=== PATIENT | female | born 2005 | race Caucasian/White ===

== ENCOUNTER 2025-01-23 07:03 | Outpatient (REF) | payer BC, SELFPAY ==
--- NOTE | ~2025-01-23 | US_ITS ---
EXAMINATION: US PELVIS TRANSABDOMINAL AND TRANSVAGINAL HISTORY: PELVIC PAIN IRREGULAR BLEEDING, H/O ENDOMETRIOSIS COMPARISON: There are no prior studies for comparison. TECHNIQUE: Transabdominal and endovaginal real-time 2D jessica-scale ultrasound was performed. FINDINGS: Uterus: The uterus is normal in size, measuring 8.5 x 3.0 x 4.8 cm. Myometrium has a normal echotexture. No fibroids are identified. Endometrium: The endometrial stripe measures 2 mm in thickness. Right ovary: The right ovary measures 2.4 x 2.2 x 2.1 cm. The right ovary is normal in size and echotexture. Left ovary: The left ovary measures 2.3 x 1.5 x 1.6 cm. The left ovary is normal in size and echotexture. Pelvic fluid: none. US/US pelvic and transvaginal IMPRESSION: Unremarkable pelvic ultrasound. Electronically signed by: Hang Brink MD 01/24/2025 07:02 AM EDT
== END 2025-01-23 07:04 | disposition home or self-care (01) ==
LOC: HO.UMASIMG 07:03
PROVIDERS: Visit Provider Nurse Practitioner Women's Health
DX: N80.9 Endometriosis, unspecified (principal)
CPT/HCPCS: 76830; 76856

== ENCOUNTER → 2025-01-23 15:30 | Outpatient (BNV) | payer BC, SELFPAY | PROVIDERS: Visit Provider Radiology Diagnostic Radiology | DX: N92.6 Irregular menstruation, unspecified (principal); R10.2 Pelvic and perineal pain | CPT/HCPCS: 76830; 76856 ==